=== PATIENT | male | born 1970 | race Caucasian/White ===

== ENCOUNTER 2024-05-01 07:55 | Day surgery (SDC) | payer OTHER, SELFPAY ==
[2024-04-28 13:38] VITALS: BMI 35.9
--- NOTE | 2024-04-28 13:52 | EKG_ITS ---
[facility] Test Date: 2024-04-28 Pat Name: SAMIA DEL CASTILLO Department: Room: - Gender: Male Biomedical Engineering Technologist: JERICA : 1970 Requested By: Markos Ramachandran Order Number: [id number] Reading MD: Markos Ramachandran Measurements Intervals [place] Rate: 70 P: 56 WA: 161 QRS: -26 QRSD: 108 T: 97 QT: 353 QTc: 383 Interpretive Statements SINUS RHYTHM WITH SINUS ARRHYTHMIA BORDERLINE LEFT AXIS DEVIATION [QRS AXIS < -20] POSSIBLE LEFT VENTRICULAR HYPERTROPHY [VOLTAGE CRITERIA PLUS LAE OR QRS WIDENING] NONSPECIFIC T-WAVE ABNORMALITY No previous ECG available for comparison /[id number]
[2024-04-28 14:55] LABS: Basophils % (Auto) 1 % (0-2.5); Eosinophils # (Auto) 0.2 Thou/mm3 (0.0-0.5); Eosinophils % (Auto) 4 % (0-10); Hematocrit 44.9 % (41.0-53.0); Hemoglobin 15.8 g/dL (13.5-16.0); Immature Granulocytes % (Auto) 0 % (0-0); Immature Granulocytes Auto 0.01 Thou/mm3 (0.00-0.00); Lymphocytes # (Auto) 1.2 Thou/mm3 (1.0-4.8); Lymphocytes % (Auto) 24 % (10-50); Mean Corpuscular HGB Conc 35.2 g/dl (31.0-37.0); Mean Corpuscular Hemoglobin 33.2 pg (25.0-35.0); Mean Corpuscular Volume 94 fL (80-100); Monocytes # (Auto) 0.4 Thou/mm3 (0.0-0.8); Monocytes % (Auto) 8 % (0-12); Neutrophils # (Auto) 3.2 Thou/mm3 (1.8-7.7); Neutrophils % (Auto) 62 % (37-80); Nucleated Red Blood Cell % 0 /100 WBC (0); Platelet Count 195 Thou/mm3 (140-440); RDW Standard Deviation 42.3 fL (35.1-43.9); Red Blood Count 4.76 Miln/mm3 (4.50-5.90); White Blood Count 5.1 Thou/mm3 (3.8-10.6)
[2024-04-28 15:03] LABS: Alanine Aminotransferase 74 U/L (10-49); Albumin, Serum 4.4 gm/dL (3.5-5.0); Albumin/Globulin Ratio 1.6 (1.2-2.2); Alkaline Phosphatase 36 U/L (46-116); Anion Gap 10 (7-16); Aspartate Amino Transferase 83 U/L (0-34); BUN/Creatinine Ratio 14 Ratio (12-20); Bilirubin,Total 0.5 mg/dL (0.3-1.2); Blood Urea Nitrogen 18 mg/dL (9-23); Calcium 10.2 mg/dL (8.3-10.6); Calcium (Corrected) 10.2 mg/dL (8.5-10.1); Carbon Dioxide 27.3 mMol/L (20.0-31.0); Chloride 102 mMol/L (98-107); Creatinine (Component) 1.3 mg/dL (0.6-1.3); Globulin 2.7 gm/dL (2.3-3.5); Glucose 146 mg/dL (74-106); Osmolality,Calculated 282 (275-295); Partial Thromboplastin Time 30.9 Seconds (22.0-36.0); Potassium 3.4 mMol/L (3.4-5.1); Prothrombin Time 10.7 Seconds (9.0-12.2); Sodium 139 mMol/L (136-145); Total Protein 7.1 gm/dL (5.7-8.2); eGFR > 60 See Note
[2024-05-01] VITALS (8 sets, daily range): BP systolic 125–151; BP diastolic 57–90; PULSE 80–97; RESP 12–17; TEMP 36.1–37.1; O2SAT 95–99; BMI 34.4
[2024-05-01] MEDS: RINGERS LACTATED 1000 ML 1,000 ML 20 ML IV (09:10)
--- NOTE | 2024-05-01 12:00 | SUR.PHASEI ---
1200: Pt. AAOx4, vitals stable, breathing unlabored, no complaint of pain or nausea, dressing to ABD CDI, no active bleed noted, report received from Roderick LIMA and Alvin LUNA.
--- NOTE | 2024-05-01 12:16 | PD.SUROPNT ---
Date of Procedure 05/01/24 Pre Op Diagnosis Symptomatic umbilical hernia Post Op Diagnosis Same Procedure Repair of the umbilical hernia with implantation of 1.7 inch Ventralex mesh Findings Patient had omentum coming through the hernia the defect was small maybe 1.5 cm in diameter and a loose my index finger Procedure Description After the patient was brought to the operating room reticular incision was given. Umbilical area on the abdomen was prepped with ChloraPrep solution draped in a sterile manner. Timeout was performed. Then I made a curved incision over below the umbilicus after injecting half percent Marcaine. Dissected out the skin using Vesta retractors and the hernia was reached. This was dissected out the omentum was pushed in. Then the edges were defined it was round. I used a right angle clamp to clear any adhesions. Then I placed 1.7 inch Ventralex mesh and attached the straps to the edges using 2-0 Prolene. Then I placed 2 sutures on the other side of the Prolene to anchor the mesh to the abdominal wall. Back of the umbilical skin was attached to the fascia to create inverted appearance of the umbilicus. Subcu tissues was closed with 3-0 chromic and the skin was approximated with 4-0 Monocryl subcuticular stitch and a dressing was applied with Adaptic and 4 x 4 gauze Anesthesia GETA Pathology / specimen None Estimated Blood Loss 20 Surgeon Rosa Durham MD Surgical Staff Operation Date: 05/01/24 11:00 Case Staff BARREL POLISHER INSIDE: Alvin Moffett RNwelding pantograph machine operator: Tere Lua
[2024-05-01] MEDS: fentaNYL CIT INJ 50 mCg/ML AMP 2ML IV (12:32)
--- NOTE | 2024-05-01 13:00 | SUR.PHASEII ---
1300: Pt. AAOx4, vitals stable, breathing unlabored, no complaint of pain or nausea, dressing to ABD CDI, pt. tolerated sips of water well, pt. ambulated to wheelchair with steady gait and no assist, no complications. Gave discharge instructions to the pt. and his ride, both verbalized understanding and had no further questions. Pt. left with all personal belongings.
== END 2024-05-01 13:00 | disposition home or self-care (01) ==
PROVIDERS: PCP Family Medicine; Referring Provider Surgery; Visit Provider Surgery
PROC: (CPT 49591; principal; 2024-05-01 10:45)
DX: K42.9 Umbilical hernia without obstruction or gangrene (principal); Z01.810 Encounter for preprocedural cardiovascular examination
CPT/HCPCS: 49591; 36415; 80053; 85025; 85610; 85730; 93005; A4217; A4649; C1781; J0131; J1100; J2250; J2405; J2704; J3010; J3490; J7120